=== PATIENT | female | born 1965 | race Two or more races ===

== ENCOUNTER 2023-04-13 10:48 | Emergency (ER) | payer OTHER ==
[~2023-04-13] VITALS: Ht 162.6 cm; Wt 93.1 kg
[~2023-04-13 10:48] MED LIST: LEVO500T91 PO; PANT40TA2 PO
[2023-04-13 11:22] LABS: Urine Epithelial Cast None Seen /hpf (<5)
[2023-04-13 11:23] LABS: Basophils # (auto) 0 10 ^3/uL (0-0.2); Hemoglobin 7.3 g/dL (12.2-16.2); Monocytes # (auto) 0.5 10 ^3/uL (0-1.3)
[2023-04-13 11:26] LABS: Basophils % (auto) 0.5 % (0.0-2.0); Eosinophils # (auto) 0.1 10 ^3/uL (0-0.8); Eosinophils % (auto) 1.6 % (0.0-7.0); Hematocrit 23.9 % (36.0-46.0); Lymphocytes # (auto) 1.6 10 ^3/uL (0.4-5.4); Lymphocytes % (auto) 20.7 % (10.0-50.0); Mean Corpuscular Hemoglobin 26.3 pg (28.0-32.0); Mean Corpuscular Hgb Conc. 30.5 g/dL (32.0-36.0); Mean Corpuscular Volume 86.3 fL (80.0-100.0); Monocytes % (auto) 6.8 % (0.0-12.0); Neutrophils # (auto) 5.3 10 ^3/uL (1.6-8.6); Neutrophils % (auto) 70.4 % (37.0-80.0); Nucleated Red Blood Cells % 0.3 %; Red Blood Cells 2.78 10^6/uL (4.0-5.20); White Blood Cell 7.5 10^3/uL (4.4-10.8)
[2023-04-13 11:30] LABS: Red Cell Distribution Width 20.5 % (11.8-14.3)
[2023-04-13 11:46] LABS: Urine Bacteria NONE SEEN /hpf (None Seen); Urine Blood Negative /uL (Negative); Urine Clarity HAZY (Clear); Urine Color Yellow (Yellow); Urine Mucus FEW (None Seen); Urine Protein, UAD TRACE (Negative); Urine Specific Gravity 1.022 (1.001-1.035); Urine WBC 28 /hpf (0 - 5)
[2023-04-13 11:47] LABS: Alanine Aminotransferase 20 U/L (7-40); Albumin 4.6 g/dL (3.2-4.8); Alkaline Phosphatase 120 U/L (46-116); Anion Gap 7 (5-15); Aspartate Aminotransferase 16 U/L (13-40); BUN/Creatinine Ratio 17.1 (10.0-20.0); Bilirubin, Total 0.3 mg/dL (0.2-1.0); Blood Urea Nitrogen 14 mg/dL (9-23); Calcium 9.2 mg/dL (8.5-10.1); Carbon Dioxide 26 mmol/L (20-30); Chloride 109 mmol/L (98-107); Glucose 107 mg/dL (74-106); Potassium 3.8 mmol/L (3.5-5.1); Sodium 142 mmol/L (136-145)
[2023-04-13] MEDS ORDERED: NITR-87 PO (12:38)
[2023-04-13] MEDS ORDERED: FER325T PO (12:38)
[2023-04-13 13:29] VITALS: BP 124/75; PULSE 79; RESP 20; TEMP 98.3; O2SAT 99
== END 2023-04-13 13:57 | disposition home or self-care (01) ==
LOC: ER 10:48
DX: N39.0 Urinary tract infection, site not specified (principal); R07.89 Other chest pain; R51.9 Headache, unspecified; Z86.2 Personal history of diseases of the blood and blood-forming organs and certain disorders involving the immune mechanism; Z98.890 Other specified postprocedural states; Z79.899 Other long term (current) drug therapy
CPT/HCPCS: 36415; 80053; 81001; 84484; 85025; 93005

== ENCOUNTER 2023-07-29 13:57 | Emergency (ER) | payer OTHER ==
[~2023-07-29] VITALS: Ht 170.2 cm; Wt 93.0 kg
[~2023-07-29 13:57] MED LIST changes: +FER325T PO; +NITR-87 PO
[2023-07-29] MEDS: ACETAMINOPHEN 500 MG TAB PO ONE (15:31)
[2023-07-29] MEDS ORDERED: AMOX875T4 PO (20:09)
[2023-07-29] MEDS ORDERED: PRED20TA2 PO (20:09)
[2023-07-29] MEDS ORDERED: ACET500T58 PO (20:09)
[2023-07-29 21:14] VITALS: BP 125/70; PULSE 100; RESP 16; TEMP 100.4; O2SAT 95
== END 2023-07-29 21:20 | disposition home or self-care (01) ==
LOC: ER 13:57
DX: J06.9 Acute upper respiratory infection, unspecified (principal); Z86.2 Personal history of diseases of the blood and blood-forming organs and certain disorders involving the immune mechanism; Z90.710 Acquired absence of both cervix and uterus